=== PATIENT | male | born 2000 | race Caucasian/White ===

== ENCOUNTER 2025-01-14 11:56 | Outpatient (CLI) | payer OTHER, SELFPAY ==
[2025-01-14 18:39] LABS: Basophils % 0.3 % (0.1-2.0); Eosinophils # 0.1 Kmm3 (0.0-0.4); Eosinophils % 2.1 % (0.1-12.0); Hematocrit 43.8 % (42.0-52.0); Hemoglobin 14.6 g/dL (14.1-18.0); Lymphocytes # 1.5 K/mm3 (0.7-4.5); Lymphocytes % 25.7 % (10-50); Mean Corpuscular HGB Conc 33.3 g/dL (31.8-35.4); Mean Corpuscular Hemoglobin 31.4 pg (27.0-31.2); Mean Corpuscular Volume 94.2 fl (80-94); Mean Platelet Volume 11.5 fl (7.4-10.4); Monocytes # 0.5 K/mm3 (0.1-1.0); Monocytes % 8.7 % (1.7-9.3); Neutrophils # 3.6 K/mm3 (1.8-7.8); Nucleated Red Blood Cells # 0 10^3/uL; Nucleated Red Blood Cells % 0 %; Platelet Count 156 K/mm3 (142-424); Red Blood Count 4.65 M/mm3 (4.60-6.20); Red Cell Distribution Width 13.4 % (11.5-17.5); Red Cell Distribution Width-SD 46.4 fL; White Blood Count 5.8 K/mm3 (4.8-10.8)
[2025-01-14 19:38] LABS: Alanine Aminotransferase 30 U/L (12-78); Albumin Level 4.6 g/dl (3.5-5.0); Albumin/Globulin Ratio 1.4 (1.1-1.8); Alkaline Phosphatase 60 U/L (38-126); Anion Gap 11.7 mEq/L (5-15); Aspartate Amino Transferase 31 U/L (17-59); Bilirubin,Total 0.6 mg/dl (0.2-1.3); Blood Urea Nitrogen 13 mg/dl (9-20); Calcium 9.4 mg/dl (8.4-10.2); Carbon Dioxide 27 mmol/L (22.0-30.0); Chloride 109 mmol/L (98-107); Estimated Glomerular Filt Rate 136 ml/min (>60); GFR (African American) 165 ML/MIN (>60); Globulin 3.3 g/dL (1.3-3.2); Glucose 95 mg/dl (74-100); Potassium 4.7 mmoL/L (3.5-5.1); Sodium 143 mmol/L (136-145); Total Protein,Serum 7.9 g/dl (6.3-8.2)
[2025-01-14 19:54] LABS: 25-OH Vitamin D, Total 37.7 ng/mL (30-100)
[2025-01-14 20:10] LABS: Thyroid Stimulating Hormone 0.39 uIU/mL (0.465-4.68)
[2025-01-14 20:49] LABS: Hemoglobin A1C 5.1 % (4.0-6.0)
[2025-01-14 21:15] LABS: Vitamin B12 486 pg/mL (239-931)
== END 2025-01-14 23:59 | disposition home or self-care (01) ==
LOC: LAB.DROPOF 01-15 10:43
PROVIDERS: PCP Nurse Practitioner; Visit Provider Nurse Practitioner
DX: F90.9 Attention-deficit hyperactivity disorder, unspecified type (principal); Z13.1 Encounter for screening for diabetes mellitus; Z68.27 Body mass index [BMI] 27.0-27.9, adult; E66.3 Overweight; E03.9 Hypothyroidism, unspecified
CPT/HCPCS: 80053; 82306; 82607; 83036; 84443; 85025

== ENCOUNTER 2025-01-16 11:00 | Outpatient (CLI) | payer OTHER, SELFPAY ==
--- NOTE | 2025-01-16 11:00 | US_ITS ---
FINAL REPORT CLINICAL HISTORY: low TSH COMPARISON: None FINDINGS: THYROID ULTRASOUND: The left lobe of the thyroid gland measures 4.5 x 1 x 1.7 cm in size. No focal nodule or mass is identified in the left lobe. The right lobe of the thyroid gland measures 5.1 x 1.1 x 1.6 cm in size. There is a single nodule in the midportion of the right lobe of the thyroid, measuring 9 mm in greatest size, a TI-RADS category 4 nodule. According to TI-RADS criteria, no follow-up is required at this time. The isthmus of the thyroid gland is unremarkable and measures 4 mm in thickness. IMPRESSION: Homogeneous thyroid gland with a single nodule in the right lobe of the thyroid, a TI-RADS category 4 nodule. According to TI-RADS criteria, and nodule of the size does not require follow-up at this time. Reviewed, Interpreted and Dictated by Diony Mcfadden MD Transcribed by Viji Serrato Authenticated and [facility]
[2025-01-16 12:14] LABS: Free T4 (Free Thyroxine) 0.76 ng/dl (0.78-2.19)
[2025-01-16 12:26] LABS: Thyroid Stimulating Hormone 0.52 uIU/mL (0.465-4.68)
[2025-01-17 08:33] LABS: Triiodothyronine (T3) Free 3.7 pg/mL (2.0-4.4)
[2025-01-17 12:33] LABS: Triiodothyronine (T3) Total 123 ng/dL (71-180)
== END 2025-01-16 23:59 | disposition home or self-care (01) ==
LOC: RAD 11:01
PROVIDERS: PCP Nurse Practitioner; Visit Provider Nurse Practitioner
DX: R79.89 Other specified abnormal findings of blood chemistry (principal)
CPT/HCPCS: 36415; 76536; 84439; 84443; 84480; 84481